=== PATIENT | male | born 1970 | race African-American/Black ===

== ENCOUNTER 2023-09-17 10:28 | Emergency (ER) | payer MEDICAID, OTHER ==
[~2023-09-17] VITALS: Ht 182.9 cm; Wt 88.0 kg
[2023-09-17 10:46] VITALS: O2SAT 99
[2023-09-17] MEDS ORDERED: DEXAMETHASONE 4MG TABLET PO ONE (11:45)
[2023-09-17] MEDS ORDERED: METH-653 MT (11:45)
[2023-09-17] MEDS ORDERED: KETOROLAC 60MG/2ML VIAL IM ONE (11:45)
[2023-09-17 13:07] VITALS: BP 134/78; PULSE 62; RESP 17; TEMP 99
== END 2023-09-17 13:08 | disposition home or self-care (01) ==
LOC: ER 10:28
DX: M54.50 Low back pain, unspecified (principal)
CPT/HCPCS: 96372; 99283; J8540; J1885; Z7610